=== PATIENT | male | born 1960 | race Caucasian/White ===

== ENCOUNTER → 2017-02-14 | Outpatient (CLI) | payer BC, OTHER ==
[~2017-02-14] MED LIST: ATEN50TA8 PO; FEXO180T PO; LISI20TA3 PO; OMEG10007 PO; OMEP40CA PO; SIMV20TA2 PO
--- NOTE | 2017-02-14 09:13 | DIAGNOSTIC IMAGING REPORT ---
RIGHT KNEE 3 VIEWS; LEFT KNEE 3 VIEWS CLINICAL HISTORY: Bilateral knee pain. FINDINGS: An AP standing view of both knees, a sunrise view of both knees, and crosstable lateral views of the right and left knee are compared to study dated 02/10/2015. The skeletal structures are osteopenic. No fracture is identified in either knee. Bilateral knee arthroplasties are in near-anatomic alignment. There has been undersurface remodeling of the patella bilaterally. No periprosthetic lucency is identified. A large calcified fabella is noted on the left. Small bilateral joint effusions are suspected. There is advanced atherosclerotic calcification of the popliteal arteries. Mild soft tissue swelling is present around both knees. IMPRESSION: 1. No fracture is identified in either knee. 2. Bilateral knee arthroplasties are in near-anatomic alignment. There is no periprosthetic lucency. 3. There is mild soft tissue swelling seen around both knees. Small joint effusions are suspected. Electronically signed by: Paulino Sepulveda M.D. 02/14/2017 9:12 AM Dictated Date/Time: 02/14/2017 9:10 AM
== END | disposition home or self-care (01) ==
LOC: C.RDSM 08:20
PROVIDERS: ATTEND Physician Assistant
DX: Z96.653 Presence of artificial knee joint, bilateral (principal)

== ENCOUNTER 2020-02-27 06:26 | Observation (INO) ==
--- NOTE | 2020-01-29 09:35 | PAT Medication Instructions ---
Medication Instructions Date of Service January 29, 2020 Home Medications Medication Instructions Recorded tramadol 50 mg tablet 50 mg PO DAILY PRN #30 tab 12/03/19 albuterol sulfate 90 mcg/actuation aerosol inhaler 1 puffs INHALATION Q6H PRN atenolol 50 mg tablet 50 mg PO QAM fexofenadine 180 mg tablet 180 mg PO DAILY PRN # lisinopril 40 mg tablet 40 mg PO QAM simvastatin 20 mg tablet 20 mg PO QPM ibuprofen 600 mg PO Q6H PRN omeprazole 20 mg PO QAM tramadol 50 mg tablet 50 mg PO DAILY PRN ASK your surgeon for instructions ibuprofen 600 mg PO Q6H PRN DO NOT take the morning of surgery fexofenadine 180 mg tablet 180 mg PO DAILY PRN lisinopril 40 mg tablet 40 mg PO QAM Take morning of surgery With a small sip of water, OTHERWISE NOTHING TO EAT OR DRINK AFTER MIDNIGHT: albuterol sulfate 90 mcg/actuation aerosol inhaler 1 puffs INHALATION Q6H PRN (use if needed; please bring with you to hospital day of surgery if possible) atenolol 50 mg tablet 50 mg PO QAM omeprazole 20 mg PO QAM tramadol 50 mg tablet 50 mg PO DAILY PRN (okay to take up to 4 hours prior to surgery if needed) Take evening before surgery albuterol sulfate 90 mcg/actuation aerosol inhaler 1 puffs INHALATION Q6H PRN (if needed) simvastatin 20 mg tablet 20 mg PO QPM tramadol 50 mg tablet 50 mg PO DAILY PRN (if needed) Other Notes If you have any questions please call us at [phone] or [phone] or [phone] or [phone]
--- NOTE | 2020-01-30 10:26 | Anesthesiology Consultation ---
Date of Service January 30, 2020 Assessment & Plan (1) Encounter for pre-operative examination: Chart Review Chart Review: Pending: Refer to Additional Notes / Consult section (pending surgeon ordered PCP clearance with response to leukocytosis ) and Patient seen in Pre Admission Testing Per PAT visit 01/30/20, patient denies any recent travel out of [facility]. No known PUI or Covid positive contacts. No current Covid related symptoms. No history of Covid testing. Did discourage any travel or new contact to others prior to surgery. Mild leukocytosis noted on preop labs- did write note to PCP to address at surgeon ordered clearance appt 02/11/20 Did inform surgeon's office of mild leukocytosis. Teaching & Discussion Pre-Anesthesia Teaching/Discussion Notes: Instructed NPO after midnight before surgery,except medications with 15 cc of water. Medication instructions provide d according to the [facility] guidelines. History Surgery Operation Date: 02/27/20 07:00 Proposed Procedures p Left Total Shoulder Arthroplasty - Ned Mason MD Height/Weight Height: 5 ft 10.5 in Weight: 103.6 kg Allergies Allergy/AdvReac Type Severity Reaction Status Date / Time No Known Allergies Allergy Verified 01/23/20 08:02 Medications Home Medications Medication Instructions Recorded Confirmed Last Taken albuterol sulfate 90 mcg/actuation 1 puffs INHALATION Q6H PRN #1 gm 03/02/19 01/23/20 Unknown aerosol inhaler atenolol 50 mg tablet 50 mg PO QAM #90 tab 07/30/19 01/23/20 Unknown fexofenadine 180 mg tablet 180 mg PO DAILY PRN #30 tab 07/30/19 01/23/20 Unknown lisinopril 40 mg tablet 40 mg PO QAM #90 tab 07/30/19 01/23/20 Unknown simvastatin 20 mg tablet 20 mg PO QPM #90 tab 07/30/19 01/23/20 Unknown ibuprofen 600 mg PO Q6H PRN 11/23/19 01/23/20 Unknown omeprazole 20 mg PO QAM 11/23/19 01/23/20 Unknown tramadol 50 mg tablet 50 mg PO DAILY PRN #30 tab 12/03/19 01/23/20 Unknown Past Medical History Medical History Abnormal finding on EKG PER PT-9 YRS AGO PREOP EKG [facility] SHOWED ARTIFACT-REQUIRED TO HAVE STRESS TEST- NO HEART ISSUES-PT CONCERNED TO BE AWARE GERD (gastroesophageal reflux disease) Well controlled and stable with meds Gout Stable Hyperlipidemia Hypertension Osteoarthritis Seasonal allergies INHALER PRN Exercise / Class Metabolic Activity II 4-5 Yardwork/Stairs/Walk up hill (one flight of stairs no chest pain or SOB- activity limited recently due to knee pain) Past Family History Family History Family/Other Rhinitis, allergic Asthma Father COPD (chronic obstructive pulmonary disease) Coronary heart disease Myocardial infarction Mother Dyslipidemia Grandfather (Maternal) Lung cancer Grandmother (Maternal) Stroke Past Surgical History Surgical History History of esophagogastroduodenoscopy (EGD) S/P arthroscopy RIGHT S/P colonoscopy S/P knee replacement R/L Past Anesthesia History No Hx of Anesthesia Complications and No Family Hx of Anesthesia Complications History of PONV No Hx of PONV and No Hx of Motion Sickness Social History Smoking Status: Never smoker Do You Dip or Chew Tobacco: No Smoking End Date: QUIT 40 YRS AGO Hx Alcohol Use: Yes Alcohol type: beer and hard liquor alcohol intake frequency: a few times a week Hx Substance Use: No Review of Systems Patient denies chest pain, shortness of breath, dyspnea on exertion, cough, wheezing, palpitations. No hx of seizures, stroke, PA, apnea/snoring. No hx of blood clots or blood transfusions Physical Exam Vital Signs VITALS BP 118/82 P 70 TEMP 97.9 SP02 97% RESP 16 Constitutional no acute distress ENMT Mouth: + small oral opening; no TMJ clicking Thyromental Distance: > or= 3.5 Finger Breadths (4.0) Mallampati Class: III Denies loose or missing teeth Neck + limited neck extension (mild) Respiratory normal respiratory effort; no respiratory distress Auscultation: lungs clear to auscultation bilaterally; no wheezes Cardiovascular Rate/Rhythm: regular rate and regular rhythm Heart Sounds: no murmur Vessels: no carotid bruit Musculoskeletal Spine: no pain with cervical ROM Neurologic moves all extremities Psychiatric Orientation: alert Testing Laboratory Results 01/30/20 10:35 01/30/20 10:35 PT 11.7 Seconds (9.0-12.0) 01/30/20 10:35 INR 1.1 (0.9-1.1) 01/30/20 10:35 Hemoglobin A1c 5.3 % (4.5-5.6) 01/30/20 10:35 Urine Color Yellow 01/30/20 10:35 Urine Appearance Clear (Clear) 01/30/20 10:35 Urine pH 7.0 (4.5-7.5) 01/30/20 10:35 Ur Specific [place] 1.011 (1.000-1.030) 01/30/20 10:35 Urine Protein Negative (Negative) 01/30/20 10:35 Urine Glucose (UA) Negative (Negative) 01/30/20 10:35 Urine Ketones Negative (Negative) 01/30/20 10:35 Urine Nitrite Negative (Negative) 01/30/20 10:35 Ur Leukocyte Esterase Negative (Negative) 01/30/20 10:35 Blood Type O Positive 01/30/20 10:35 Antibody Screen NEGATIVE 01/30/20 10:35 Electrocardiogram Date: 01/30/20 Findings: + SB @ (37)
--- NOTE | 2020-01-30 10:57 | History & Physical Report ---
Date of Service January 30, 2020 Assessment & Plan (1) Osteoarthritis of left shoulder: Plan: Patient is scheduled to undergo this procedure with Dr. Ned Mason at the [facility] as an inpatient on February 27, 2020. Risks and complications of the procedure such as: Infection, bleeding, pain, scarring, nerve blood vessel damage, weakness, wound problems, stiffness, incomplete relief of symptoms, hardware failure, hardware loosening, wear, fracture, tendon or ligament injury, blood clots, embolism, heart attack, stroke and were explained to the patient at his visit today by myself, however informed consent will not be signed until Dr. Mason is present on the day of the patient's procedure. Patient also understood the risks of proceeding with surgical intervention during the COVID-19 pandemic. He states that he is currently asymptomatic and understands that he will receive COVID-19 screening test prior to the surgical procedure. We will obtain preoperative medical clearance from the patient's primary care provider Dr. Lombardi (he has an ap pointment with her next week), as well as CBC with differential, complete metabolic panel, PT/INR, blood type and screen, urinalysis, urine culture, EKG, hemoglobin A1c and a nasal culture for MRSA. Patient states that he has his PAT appointment at the hospital later this morning and we will obtain the necessary testing at that time. During today's visit we discussed discharge planning, outpatient physical therapy, follow-up appointment date and time, discharge from the hospital with pain medication and blood thinner. Patient already understands that he needs antibiotic prophylaxis for dental procedures. He also understands that the rehab process for total shoulders is rather extensive. All questions were answered clearly and effectively. Patient states if he has questions or concerns prior to his surgery, he will contact clinic. History of Present Illness Chief Complaint: Left shoulder pain and stiffness Primary Care Provider: Ubaldo Thompson MD History of Present Illness (including history relevant to procedure): This 59-year-old male presents the clinic today for his preoperative history and physical examination. Patient is initially scheduled for the surgery in mid November but that was canceled due to the COVID-19 pandemic. He has a longstanding history of left shoulder pain that he attributes to injuries he sustained while playing football and wrestling in high school. He states that over the past ye ar or so he has noted increased pain over the anterior aspect of the shoulder with limited range of motion and stiffness. Patient states that this has prevented him from performing his daily functions at work. He has failed conservative measures and is electing to proceed with surgical intervention. Past Medical History: Problems: Preop examination Primary osteoarthritis, left shoulder Osteoarthritis of knee Hypertension Hyperlipidemia GERD Obesity Procedure History Knee replacement - bilateral Allergies and Sensitivities: Allergy Not found in Search Family history: Completely unremarkable Social history: Denies tobacco or illicit drug use. States that he consumes approximately 6 alcoholic beverages per week. Current Home Meds: (Last Updated 01/29 08:33) (Amoxil 500 mg oral capsule) 2,000 mg PO ONCE take all 4 capsules 1 hour prior to the procedure(atenolol 50 mg oral tablet) 50 mg PO Daily(fexofenadine 180 mg oral tablet) 180 mg PO Daily(lisinopril 20 mg oral tablet) 20 mg PO Daily(omeprazole 20 mg oral delayed release tablet)(Zocor 20 mg oral tablet) 20 mg PO qhs(traMADol 50 mg oral tablet) as needed Allergies Allergy/AdvReac Type Severity Reaction Status Date / Time No Known Allergies Allergy Verified 01/23/20 08:02 Home Medications Home Medications Medication Instructions Recorded Confirmed Type albuterol sulfate 90 mcg/actuation 1 puffs INHALATION Q6H PRN #1 gm 03/02/19 01/23/20 History aerosol inhaler atenolol 50 mg tablet 50 mg PO QAM #90 tab 07/30/19 01/23/20 History fexofenadine 180 mg tablet 180 mg PO DAILY PRN #30 tab 07/30/19 01/23/20 History lisinopril 40 mg tablet 40 mg PO QAM #90 tab 07/30/19 01/23/20 History simvastatin 20 mg tablet 20 mg PO QPM #90 tab 07/30/19 01/23/20 History ibuprofen 600 mg PO Q6H PRN 11/23/19 01/23/20 History omeprazole 20 mg PO QAM 11/23/19 01/23/20 History tramadol 50 mg tablet 50 mg PO DAILY PRN #30 tab 12/03/19 01/23/20 Rx Past Med/Surg History Medical History Abnormal finding on EKG PER PT-[address] A[address] [facility] SHOWED ARTIFACT-REQUIRED TO HAVE STRESS TEST- NO HEART ISSUES-PT CONCERNED TO BE AWARE GERD (gastroesophageal reflux disease) Well controlled and stable with meds Gout Stable Hyperlipidemia Hypertension Osteoarthritis Seasonal allergies INHALER PRN Surgical History History of esophagogastroduodenoscopy (EGD) S/P arthroscopy RIGHT S/P colonoscopy S/P knee replacement R/L Family History Family/Other Rhinitis, allergic Asthma Father COPD (chronic obstructive pulmonary disease) Coronary heart disease Myocardial infarction Mother Dyslipidemia Grandfather (Maternal) Lung cancer Grandmother (Maternal) Stroke Social History Preferred Language: Moldovan Communication Ability: Effective Editor [employer] Required: No Beliefs That Will Affect Care: None marital status: Single Current Living Situation: Alone Other Information That Helps Us Care for You: No Feels Safe at Home: Yes Safety Concerns: Feels Safe At This Time Smoking Status: Never smoker Do You Dip or Chew Tobacco: No ; Smoking End Date: QUIT 40 YRS AGO ; Second Hand Exposure: No ; Tobacco Cessation Education Requested by Patient: No Hx Alcohol Use: Yes Alcohol type: beer and hard liquor Hx Substance Use: No Review of Systems All systems reviewed & are unremarkable except as noted in HPI & below Physical Exam Physical Exam: Physical Exam: (relevant to the procedure, including heart and lung evaluation) General: Patient is normal in appearance with proper grooming and hygiene. He is alert and oriented x3 Eyes: Pupils are equal and reactive to light with accommodation. Extraocular movements are intact Throat: Posterior oropharynx is clear with absence of edema, erythema and exudate Cardiac: Regular rate and rhythm with no murmurs or gallops appreciated Lungs: Clear to auscultation throughout with no wheezing, rales or rhonchi Abdomen: Obese, nondistended, nontender with normal active bowel sounds Extremities: Left shoulder; she is able to forward flex and AB duct 75 degrees with pain referred to the glenohumeral groove. External rotation with the elbow flexed at the side is to -5 degrees. There is audible and palpable crepitation about the shoulder joint with passive range of motion with internal and external rotation. Palpation over the AC joint, the bicipital groove, and glenohumeral groove. Subscapularis liftoff test causes severe pain in the glenohumeral area. Neuro: Cranial nerves II through XII are intact with no motor or sensory deficit Skin: Normal in appearance with no open skin areas or discharge Results & Data Diagnostic Findings MRI scan reveals end-stage bicompartmental osteoarthritis with cystic formation, subchondral bone loss and erosion, rotator cuff tendinopathy, but no miah tea ring in the left shoulder. X-ray of his left shoulder. Three views, AP, axillary and outlet reveal end- stage glenohumeral arthritis with subchondral cyst formation, sclerosis humeral head deformity. There does not appear to be any major superior migration. There is a small area of spurring on the inferior clavicle.
[2020-01-30 12:08] LABS: Basophils # (auto) 0.03 K/uL (0-0.2); Basophils % (auto) 0.2 %; Eosinophils # (auto) 0.09 K/uL (0-0.5); Eosinophils % (auto) 0.7 %; Hematocrit (blood only) 44.2 % (42-52); Hemoglobin 15.6 g/dL (14.0-18.0); Immature Granulocytes # (auto) 0.03 K/uL (0.00-0.02); Immature Granulocytes % (auto) 0.2 %; Lymphocytes # (auto) 1.16 K/uL (1.2-3.4); Lymphocytes % (auto) 9.2 %; Mean Corpuscular Hemoglobin 33.3 pg (25-34); Mean Corpuscular Hgb Conc 35.3 g/dL (32-36); Mean Corpuscular Volume 94.4 fL (80-100); Mean Platelet Volume 11.1 fL (7.4-10.4); Monocytes # (auto) 1.65 K/uL (0.11-0.59); Monocytes % (auto) 13.1 %; Neutrophils # (auto) 9.66 K/uL (1.4-6.5); Neutrophils % (auto) 76.6 %; Platelet Count 189 K/uL (130-400); RDW Coefficient of Variation 13.2 % (11.5-14.5); RDW Standard Deviation 45.4 fL (36.4-46.3); Red Blood Count 4.68 M/uL (4.7-6.1); White Blood Count 12.62 K/uL (4.8-10.8)
[2020-01-30 12:16] LABS: Albumin Level 3.4 gm/dl (3.4-5.0); BUN Creatinine Ratio 11.1 (10-20); Calcium 8.7 mg/dl (8.5-10.1); Creatinine Clr Calc Pharmacy 108.5 ml/min; Est GFR (African American) 108.2; Est GFR (Non-African American) 93.4; Potassium 4.1 mmol/L (3.5-5.1)
[2020-01-30 12:19] LABS: Albumin Globulin Ratio 0.7 (0.9-2); Globulin 4.7 gm/dl (2.5-4.0); INR 1.1 (0.9-1.1); Prothrombin Time 11.7 Seconds (9.0-12.0); Total Protein 8.1 gm/dl (6.4-8.2)
[2020-01-30 12:21] LABS: Estimated Average Glucose 105 mg/dl; Hemoglobin A1C 5.3 % (4.5-5.6)
[2020-01-30 12:38] LABS: Appearance Urine Clear (Clear); Bilirubin Urine Negative (Negative); Blood Urine Negative (Negative); Color Urine Yellow; Glucose Urine UA Negative (Negative); Ketones Urine Negative (Negative); Leukocyte Esterase Urine Negative (Negative); Nitrite Urine Negative (Negative); Protein Urine Negative (Negative); Specific Gravity Urine 1.011 (1.000-1.030); Urobilinogen Urine Negative (Negative)
--- NOTE | 2020-01-30 16:18 | Electrocardiogram Report ---
Test Reason : Blood Pressure : / mmHG Vent. Rate : 054 BPM Atrial Rate : 054 BPM P-R Int : 150 ms QRS Dur : 104 ms QT Int : 436 ms P-R-T Axes : 011 035 009 degrees QTc Int : 413 ms Sinus bradycardia Otherwise normal ECG When compared with ECG of 02-DEC-2011 10:09, No significant change was found Confirmed by Yehuda Kumar ([id number]) on 01/30/2020 4:17:47 PM Referred By: Ned Mason Confirmed By:Tony Kumar
[~2020-02-27 06:26] MED LIST changes: -ATEN50TA8 PO; +CEFAZOLIN 2000MG 2,000 MG/15 ML SYR IV SCH; -FEXO180T PO; -LISI20TA3 PO; +LR 15ML/HR IV SCH; +LR 60ML/HR IV SCH; -OMEG10007 PO; -OMEP40CA PO; +ROPIVACAINE 0.5% HCL/PF 150 MG, BUPIVACAINE 0.5% MPF 30 ML, EPINEPHrine 0.15 MG, Ketoro... INFIL SCH; -SIMV20TA2 PO; +TRANEXAMIC ACID 1,000 MG **IV Pre-op IV SCH
--- NOTE | 2020-02-27 06:31 | History & Physical Bridge Note ---
Date of Service February 27, 2020 History & Physical Bridge Note I have examined the patient, reviewed the History & Physical and in the interval since the performance of the History & Physical I have noted the following changes of clinical significance: consent obtained/site marked/covid screen negative.no changes noted
[2020-02-27] MEDS ORDERED: BUPIVACAINE/EPINEPHRINE 0.25% 1:200,000 30 ML VIAL ONE (06:37)
[2020-02-27] MEDS ORDERED: LIDOCAINE HCL 2% 2 ML VIAL/AMP(20MG/ML) INFIL ONE (07:31)
[2020-02-27] MEDS ORDERED: MIDAZOLAM HCL 1 MG/ML 2ML VIAL ONE (07:31)
[2020-02-27] MEDS ORDERED: fentaNYL citrate 100 MCG/2 ML VIAL ONE ×2 (07:32→11:08)
[2020-02-27] MEDS ORDERED: ATROPINE SULFATE 0.1 MG/ML 10ML SYR IV PRN (08:23)
[2020-02-27] MEDS ORDERED: fentaNYL citrate 100 MCG/2 ML VIAL IV PRN (08:23)
[2020-02-27] MEDS ORDERED: HYDROmorphone INJ 2 MG/ML SYR/VIAL IV PRN (08:23)
[2020-02-27] MEDS ORDERED: ONDANSETRON INJ 2 MG/ML 2 ML VIAL IV PRN ×2 (08:23→12:34)
[2020-02-27] MEDS ORDERED: ePHEDrine sulfate 50 MG/ML AMP IV PRN (08:23)
[2020-02-27] MEDS ORDERED: BACITRACIN INJ 50,000 UNIT VIAL ONE (08:46)
[2020-02-27] MEDS ORDERED: ORTHO JOINT ANESTHETIC ONE (08:46)
[2020-02-27] MEDS ORDERED: THROMBIN FOR SOLN 20000 UNIT KIT ONE (08:46)
[2020-02-27] MEDS ORDERED: ROCURONIUM BROMIDE 10 MG/ML 5 ML VIAL IV ONE (10:14)
[2020-02-27] MEDS ORDERED: ONDANSETRON INJ 2 MG/ML 2 ML VIAL ONE (10:14)
[2020-02-27] MEDS ORDERED: DEXAMETHASONE SOD INJ 4 MG/ML VIAL ONE (10:14)
[2020-02-27] MEDS ORDERED: PROPOFOL IV EMULSION 10 MG/ML 20 ML VIAL IV ONE (10:14)
[2020-02-27] MEDS ORDERED: ePHEDrine sulfate 50 MG/ML SYR ONE (10:15)
--- NOTE | 2020-02-27 11:17 | Post Operative Brief Note ---
Immediate Post Op Note v1 Date of Surgery February 27, 2020 Pre & Post Diagnosis Operation Date: 02/27/20 08:50 Pre-Op Diagnosis: Left Shoulder Osteoarthritis Post-Op Diagnosis: Left Shoulder Osteoarthritis I identified the patient and participated in the time-out.: Yes Procedure Operation Date: 02/27/20 08:50 Actual Procedures p Left Total Shoulder Arthroplasty--Cemented(Left) Glenoid/press fit stem humerus - Ned Mason MD Surgeon Ned Mason MD Metal Furnace Operator peg/meli Estimated Blood Loss 100 Findings Consistent with Post-Op Diagnosis
--- NOTE | 2020-02-27 11:41 | Operative Report ---
Post Operative Report Pre & Post Diagnosis Operation Date: 02/27/20 08:50 Pre-Op Diagnosis: Left Shoulder Osteoarthritis Post-Op Diagnosis: Left Shoulder Osteoarthritis I identified the patient and participated in the time-out.: Yes Procedure Operation Date: 02/27/20 08:50 Actual Procedures p Left Total Shoulder Arthroplasty--Cemented(Left) - Ned Mason MD Surgeon Ned Mason MD Electrical Engineering Director peg/meli Estimated Blood Loss 100 Findings Consistent with Post-Op Diagnosis Specimens left humeral head Complications none Disposition Accompanied Patient To Recovery: Yes Disposition: Recovery Room Description of Procedure [id number]-[id number]-huyaf position, standard prep and drape, time-out Left Total Shoulder Arthroplasty--Cemented Please see Dr Mason's procedure notes for specific details I was present throughout the case, assisted for wound closure and transferred the patient to PACU in stable condition I attest to the content of the Intraoperative Record and any orders documented therein. Any exceptions are noted below.
[2020-02-27] MEDS ORDERED: GLYCOPYRROLATE 0.2 MG/ML VIAL ONE (11:42)
[2020-02-27] MEDS ORDERED: NEOSTIGMINE METHYLSULFATE 5 MG/5 ML SYR ONE (11:42)
--- NOTE | 2020-02-27 11:44 | Operative Report ---
Post Operative Report Pre & Post Diagnosis Operation Date: 02/27/20 08:50 Pre-Op Diagnosis: Left Shoulder Osteoarthritis Post-Op Diagnosis: Left Shoulder Osteoarthritis I identified the patient and participated in the time-out.: Yes Procedure Operation Date: 02/27/20 08:50 Actual Procedures p Left Total Shoulder Arthroplasty--Cemented(Left) - Ned Mason MD Surgeon QUINN Mason MD Volumetric Weigher peg/meli Estimated Blood Loss 100 Findings Consistent with Post-Op Diagnosis Specimens see operative report Drains none Complications none Disposition Accompanied Patient To Recovery: Yes Disposition: Recovery Room Indications This 59-year-old white male presented to the office with complaints of intractable left shoulder pain. He had tried conservative care measures without improvement. Patient elected to proceed with surgical intervention after being educated about potential risks and outcomes. Preoperative imaging was obtained. Description of Procedure Patient was administered a regional block and then taken to the operating room where he was given general anesthesia. He was prepped and draped in the usual sterile fashion. Please see Dr. Mason's operative report for specifics of the procedure. I was present for the entire case from initial patient positioning through final wound closure. Assistance was provided in tissue retraction, hemostasis, trial implant placement, final implant placement, and final wound closure. Patient was taken to the recovery room in satisfactory condition. I attest to the content of the Intraoperative Record and any orders documented therein. Any exceptions are noted below.
--- NOTE | 2020-02-27 11:50 | XRay Report ---
XR shoulder LT 1V CLINICAL HISTORY: post op left TSA. Do not remove sling do AP only COMPARISON: 04/23/2019 DISCUSSION: Anatomic alignment post left shoulder arthroplasty. Good contact between prosthetic and u nderlying bone. Expected postoperative soft tissue change. IMPRESSION: Anatomic alignment post total left shoulder arthroplasty. ACT 112: Negative or not required by law. The above report was generated using voice recognition software. It may contain grammatical, syntax or spelling errors. Electronically signed by: Alfredito Galan M.D. 02/27/2020 11:49 AM
--- NOTE | 2020-02-27 11:50 | Operative Report (OR) ---
DATE OF OPERATION: 02/27/2020 SURGEON: Ned Mason MD. RN VASCULAR: Dr. Luna. SECOND RN VASCULAR: Tobias Antoine PA-C. PREOPERATIVE DIAGNOSIS: Severe osteoarthritis of the left shoulder. POSTOPERATIVE DIAGNOSIS: Severe osteoarthritis of the left shoulder. OPERATION PERFORMED: Hybrid total left shoulder replacement, cemented glenoid porous coated humerus. PERIOPERATIVE SITUATION: Medically cleared male with intractable shoulder pain with physical exam, x-ray and MRI scan consistent with the above diagnosis. He has severe disease. SUMMARY OF IMPLANTS: Size 52 keeled glenoid, size 12 Global Advantage stem, 52 x 21 head. ESTIMATED BLOOD LOSS: 100 mL CRYSTALLOID: Per anesthesia. PATHOLOGY: Pending on bone. DVT prophylaxis will be with aspirin 325 b.i.d. DESCRIPTION OF PROCEDURE: The patient appropriately identified, site verified, consent verified. Antibiotics confirmed as being given. The left upper extremity was prepped and draped in usual routine fashion. Left shoulder was the site of surgery. A deltopectoral approach was utilized. Cephalic vein was preserved. The clavipectoral fascia identified. The CA ligament released. Good exposure obtained. The subscap peeled off. The capsule was then released along the inferior humeral head staying very close to the humerus. Care taken to palpate and protect the axillary nerve and musculocutaneous nerves. Humeral head was then resected. Osteophytes resected. Excellent exposure was obtained. The glenoid soft tissue was excised including the labrum remaining capsule. Excellent exposure obtained and then the keeled glenoid sliding hole made and then the osteophytes knocked off with the reamers and then the bur used to enlarge the keel depth with a curette. A curved curette used to help that out. Once that was all seated, the permanent implant was cemented in position after the area was prepared with a prominent irrigation. After 14 minutes of cement curing, 52 implant was well fixed and well positioned. The humeral exposure was excellent. Serial reaming carried up to a size 12 and a 12 impacted into position as the trial with a 21 head being best. The shoulder was stable with abduction about 40-50 degrees, and external rotation of 25-30 degrees. Wound was then irrigated. The trial implant removed, the permanent placed into position. After rotator cuff sutures x4 were placed in the lesser tuberosity with #2 Ethibond. The permanent implant was then seated with the sutures being looped around the stem and tightened as it was pulled on and impacted into position and the humeral head placed and impacted into position, the humerus reduced. Excellent positioning was obtained. Rotator cuff interval stitch was then repaired with #1 Vicryl and a #1 Ethibond and then the four sutures for the rotator cuff subscap were tied and then created a tension band over the periosteal capture lateral to the tuberosity and then back into the subscap. An excellent repair was obtained. The safe zone of movement was from belly to external rotation of 10 degrees, abduction to 50-60 degrees easily with no tension. The wound was then irrigated one final time and closed with #1 Vicryl, 2-0 Vicryl and stainless steel clips. Appropriate dressing applied, sling and belly band. Again, pathology pending on bone. Estimated blood loss 100 mL. DVT prophylaxis with aspirin. I attest to the content of the Intraoperative Record and any orders documented therein. Any exception s are noted below.
--- NOTE | 2020-02-27 11:53 | Anesthesiology Progress Note ---
Date of Service February 27, 2020 Anesthesia Post Procedure Vital Signs Vital Signs: Temp Pulse Pulse Resp BP BP Pulse Ox 02/27/20 11:39 36.2 C L 77 16 119/84 95 02/27/20 08:51 70 18 127/88 100 02/27/20 08:46 37.0 C 69 18 129/85 100 02/27/20 07:41 63 20 114/83 100 02/27/20 06:57 37 C 75 20 118/86 96 Pain Intensity Left Shoulder: Pain Intensity: 5 Transfer of Care Handoff Completed per policy Notes Mental Status: alert / awake / arousable and participated in evaluation Patient Amnestic to Procedure: Yes Nausea / Vomiting: adequately controlled Pain: adequately controlled Airway Patency, RR, SpO2: stable & adequate BP & HR: stable & adequate Hydration State: stable & adequate Anesthetic Complications: no major complications apparent and Pt Satisfied with anesthetic care
[2020-02-27] MEDS ORDERED: ALUMINUM/MAGNESIUM SUSP 30 ML UDC PO PRN (12:34)
[2020-02-27] MEDS ORDERED: FEXOFENADINE HCL 180 MG TAB PO PRN (12:34)
[2020-02-27] MEDS ORDERED: VANCOMYCIN CONSULT ACTIVE PRN (12:34)
[2020-02-27] MEDS ORDERED: METOCLOPRAMIDE HCL INJ 5 MG/ML 2 ML VIAL IV PRN (12:34)
[2020-02-27] MEDS ORDERED: TAMSULOSIN HCL 0.4 MG CAP PO PRN (12:34)
[2020-02-27] MEDS ORDERED: DiphenhydrAMINE HCL 50 MG/ML VIAL IV PRN (12:34)
[2020-02-27] MEDS ORDERED: ALBUTEROL HFA 8 GM INHALER INH PRN (12:34)
[2020-02-27] MEDS ORDERED: MAGNESIUM HYDROXIDE SUSP 30 ML UDC PO PRN (12:34)
[2020-02-27] MEDS ORDERED: NALOXONE HCL 0.4 MG/1 ML VIAL/CARP IV PRN (12:34)
[2020-02-27] MEDS ORDERED: SODIUM CHLORIDE 0.9% 1000ML 1,000 ML IV SCH (12:34)
[2020-02-27] MEDS ORDERED: HYDROmorphone INJ 0.5 MG/0.5 ML SYR IV PRN (12:34)
[2020-02-27] MEDS ORDERED: bisacodyL 10 MG SUPP PR PRN (12:34)
--- NOTE | 2020-02-27 13:02 | Progress Notes ---
DATE: 02/27/2020 SUBJECTIVE: Postoperative check status post left total shoulder replacement. At this point in time, the patient is doing well, has some minor raspiness to his voice either from the block or from the intubation. He notes no chest pain, shortness of breath, fever, chills, nausea, vomiting or headache. OBJECTIVE: Vital signs are stable. He is afebrile. Neurovascular status is limited by his block. Wound dressing is clean, dry and intact. Postop x-rays look excellent. There is no sign of any pneumothorax or any kind of fracture. The glenohumeral joint positioning is excellent. ASSESSMENT: Doing well status post left total shoulder replacement. Plan is for discharge to home tomorrow. Start physical therapy as an outpatient.
--- NOTE | 2020-02-27 13:07 | Discharge Summary (DS) ---
DISCHARGE DATE POTENTIAL: 02/28/2020 CHIEF COMPLAINT: Left shoulder pain. HISTORY OF PRESENT ILLNESS: The patient underwent elective left total shoulder replacement. At this point in time, his hospital course has been uneventful. His postoperative x-rays look excellent. PAST MEDICAL HISTORY: Remarkable for gout, hyperlipidemia, hypertension, osteoarthritis. PAST SURGICAL HISTORY: Remarkable for colonoscopies, knee replacements, GEDs. SOCIAL HISTORY: Reveals he lives with family. Denies tobacco, drug use or alcohol use. ALLERGIES: None. PREADMISSION MEDICATIONS: Please see med rec sheet. FAMILY HISTORY: Remarkable for COPD, coronary artery disease, myocardial infarction, dyslipidemia, lung cancer. ASSESSMENT: Status post left total shoulder replacement. PLAN: For discharge tomorrow.
[2020-02-27] MEDS: ACETAMINOPHEN 500 MG TAB PO SCH ×2 (13:28→21:00)
[2020-02-27] MEDS ORDERED: VANCOMYCIN HCL 1,500 MG in SODIUM CHLORIDE 0.9% 500 ML IV SCH (13:30)
[2020-02-27] MEDS: KETOROLAC 30 MG/ML VIAL IV SCH ×2 (13:49→19:14)
[2020-02-27] MEDS: OXYCODONE HCL IR 5 MG TAB (IMMEDIATE RELEASE) PO PRN ×2 (16:11→21:00)
[2020-02-27] MEDS: CEFAZOLIN 2000MG 2,000 MG/15 ML SYR IV SCH (17:33)
[2020-02-27] MEDS: ASCORBIC ACID 500 MG TAB PO SCH (17:34)
[2020-02-27] MEDS ORDERED: TRANEXAMIC ACID / 0.7% NACL 1,000 MG/100 ML BAG IV SCH (17:49)
[2020-02-27] MEDS: FERROUS GLUCONATE 324 MG TAB PO SCH (17:52)
[2020-02-27] MEDS ORDERED: COUGH DROP (SUGAR FREE) LOZ 24 LOZ/1 BOX BUCCAL PRN (19:33)
[2020-02-27] MEDS ORDERED: COUGH DROP (SUGAR FREE) LOZ 24 LOZ/1 BOX BUCCAL ONE (19:40)
[2020-02-27] MEDS: DOCUSATE SODIUM 100 MG CAP PO SCH (21:00)
[2020-02-27] MEDS ORDERED: SIMVASTATIN 20 MG TAB PO SCH (21:00)
[2020-02-27] MEDS ORDERED: SENNA 8.6 MG TAB PO SCH (21:00)
[2020-02-28] MEDS: CEFAZOLIN 2000MG 2,000 MG/15 ML SYR IV SCH (00:08)
[2020-02-28] MEDS: KETOROLAC 30 MG/ML VIAL IV SCH ×2 (00:09→06:32)
[2020-02-28] MEDS: OXYCODONE HCL IR 5 MG TAB (IMMEDIATE RELEASE) PO PRN ×2 (02:56→09:21)
[2020-02-28 06:15] LABS: Basophils # (auto) 0.02 K/uL (0-0.2); Basophils % (auto) 0.2 %; Eosinophils # (auto) 0.02 K/uL (0-0.5); Eosinophils % (auto) 0.2 %; Hematocrit (blood only) 37.2 % (42-52); Hemoglobin 12.7 g/dL (14.0-18.0); Immature Granulocytes # (auto) 0.04 K/uL (0.00-0.02); Immature Granulocytes % (auto) 0.3 %; Lymphocytes # (auto) 1.24 K/uL (1.2-3.4); Mean Corpuscular Hemoglobin 31.7 pg (25-34); Mean Corpuscular Hgb Conc 34.1 g/dL (32-36); Mean Corpuscular Volume 92.8 fL (80-100); Mean Platelet Volume 10.2 fL (7.4-10.4); Monocytes % (auto) 13.7 %; Neutrophils # (auto) 9.38 K/uL (1.4-6.5); Neutrophils % (auto) 75.6 %; Platelet Count 244 K/uL (130-400); RDW Coefficient of Variation 12.7 % (11.5-14.5); RDW Standard Deviation 43.1 fL (36.4-46.3); Red Blood Count 4.01 M/uL (4.7-6.1)
[2020-02-28] MEDS: ACETAMINOPHEN 500 MG TAB PO SCH (06:32)
[2020-02-28 06:50] LABS: BUN Creatinine Ratio 9.8 (10-20); Creatinine Clr Calc Pharmacy 73.2 ml/min; Est GFR (African American) 71.4; Est GFR (Non-African American) 61.6; Potassium 3.7 mmol/L (3.5-5.1)
[2020-02-28] MEDS ORDERED: dexAMETHasone 10 MG in SYRINGE 0 ML IV SCH (08:00)
--- NOTE | 2020-02-28 08:34 | Progress Notes ---
DATE: 02/28/2020 SUBJECTIVE: Postop day #1 status post left total shoulder replacement. The patient is doing well, has no major issues. Denies any chest pain, shortness of breath, fever, chills, nausea, vomiting or headache. OBJECTIVE: VITAL SIGNS: Stable. He is afebrile. LABORATORY WORK: Hematocrit stable at 37. Electrolytes are pending. ASSESSMENT: Doing well status post left shoulder replacement. We will follow up for PT today. Can get his dressing changed there. Placed on aspirin 325 b.i.d. for DVT prophylaxis.
[2020-02-28] MEDS ORDERED: lisinopriL 40 MG TAB PO SCH (09:00)
[2020-02-28] MEDS ORDERED: MULTIVITAMIN TAB PO SCH (09:00)
[2020-02-28] MEDS ORDERED: ASPIRIN/ALUM/MAGNES/CAL CARB 325 MG TAB PO SCH (09:00)
[2020-02-28] MEDS ORDERED: ATENOLOL 50 MG TABLET PO SCH (09:00)
[2020-02-28] MEDS ORDERED: PANTOprazole 40 MG TAB PO SCH (09:00)
[2020-02-28] MEDS: DOCUSATE SODIUM 100 MG CAP PO SCH (09:02)
[2020-02-28] MEDS: ASCORBIC ACID 500 MG TAB PO SCH (09:02)
[2020-02-28] MEDS: FERROUS GLUCONATE 324 MG TAB PO SCH (09:13)
--- NOTE | 2020-02-28 09:33 | Orthopedic Progress Note ---
Date of Service February 28, 2020 Assessment & Plan (1) Status post total shoulder arthroplasty: Patient will be discharged to home this morning. He has an appointment at the office at 1030 for physical therapy and a dressing change. Prescription for Percocet has been sent into his pharmacy. Continue use of the sling. Start aspirin 325 mg twice daily No active motion of the shoulder for 4 to 6 weeks. Admission and Anticipated Discharge Date Admission Date: February 27, 2020 Subjective Patient is seen in his room this morning. He states he had difficulty sleeping last night. He denies any chest pain, shortness of breath, nausea, vomiting, diarrhea, or severe shoulder pain. He states he just does not sleep on his back and primarily sleeps on his right side. He feels ready for discharge. He has been wearing his sling. No other complaints. Review of Systems Review of Systems: Unchanged from yesterday. Physical Exam Physical Exam: General: Well-developed, well-nourished, middle-aged white male, in no acute distress. Laying in the bed. Alert and oriented. Skin: Warm and dry with good turgor. Postsurgical dressings are in place. No bleeding through the dressings. Musculoskeletal: Patient has intact motor function to his wrist and digits. He is able to actively flex and extend the left elbow within a small range of motion. Shoulder motion was not attempted. Neurologic: Gross sensation is intact across all aspects of the left arm by soft touch. Peripheral pulses are 2+. Results & Data ([facility]) Vital Signs (Past 12 Hours) Vital Signs Temp Pulse Pulse Resp BP Pulse Ox 02/28/20 08:58 66 100/66 02/28/20 07:42 36.8 C 51 L 16 96/65 L 94 02/28/20 07:12 36.8 C 51 L 16 96/65 L 94 02/28/20 02:37 36.6 C 51 L 16 115/77 96 02/27/20 23:32 36.8 C 54 L 16 106/68 95 Laboratory Results H&H obtained this morning are 12.7 and 37.2. PRP is relatively unremarkable. Sodium is 132, which is near his baseline.
== END 2020-02-28 10:10 | disposition home or self-care (01) ==
LOC: ASU 06:26 → INTOOBSV 11:54 → 3E 11:54